=== PATIENT | female | born 1990 | race Caucasian/White ===

== ENCOUNTER 2021-03-05 20:47 | Emergency (ER) | payer OTHER ==
[~2021-03-05 20:47] MED LIST: FLONASE 0.05% N16 GM; IBUPROFEN600 MG PO; KEFLEX CAP 500500 MG PO; ZOVIRAX 200 MG200 MG PO; ZYRTEC10 MG PO
== END 2021-03-05 21:33 | disposition left against medical advice (07) ==
LOC: ER1 20:47
DX: Z53.21 Procedure and treatment not carried out due to patient leaving prior to being seen by health care provider (principal)

== ENCOUNTER → 2021-10-27 | Outpatient (CLI) | payer OTHER | LOC: KOH-I 09:09 | DX: M43.16 Spondylolisthesis, lumbar region (principal); M51.17 Intervertebral disc disorders with radiculopathy, lumbosacral region | CPT/HCPCS: 72148 ==

== ENCOUNTER 2021-12-20 20:57 | Emergency (ER) | payer OTHER ==
[2021-12-21] MEDS ORDERED: CEPHALEXIN500 M1 PO (01:12)
[2021-12-21] MEDS ORDERED: ONDANSETRON ODT4 MG PO (01:12)
== END 2021-12-21 01:22 | disposition home or self-care (01) ==
LOC: ER1 20:57
DX: S61.412A Laceration without foreign body of left hand, initial encounter (principal); Z23 Encounter for immunization; W26.8XXA Contact with other sharp object(s), not elsewhere classified, initial encounter; Y92.009 Unspecified place in unspecified non-institutional (private) residence as the place of occurrence of the external cause
CPT/HCPCS: 73130; 90471; 99283